=== PATIENT | male | born 1995 | race African-American/Black ===

== ENCOUNTER 2018-01-26 13:31 | Emergency (ER) | payer MEDICAID | END 2018-01-26 15:45 | disposition home or self-care (01) | LOC: D.ER 13:31 | DX: M54.16 Radiculopathy, lumbar region (principal) ==

== ENCOUNTER 2019-10-19 19:27 | Emergency (ER) | payer SELFPAY ==
[~2019-10-19] VITALS: Ht 175.3 cm; Wt 102.3 kg
[2019-10-19 19:34] VITALS: Ht 175.3 cm; Wt 102.3 kg
[2019-10-19] MEDS ORDERED: ZOFRAN ODT4 MG/UDTAB PO (21:13)
[2019-10-19] MEDS ORDERED: BUTALB-APAP-CA1 EACH PO (21:13)
[2019-10-19 21:34] VITALS: BP 163/81
== END 2019-10-19 21:30 | disposition home or self-care (01) ==
LOC: D.ER 19:27
DX: R51 Headache (principal); R11.0 Nausea